=== PATIENT | male | born 1990 | race African-American/Black ===

== ENCOUNTER 2019-12-02 11:30 | Emergency (ER) | payer OTHER ==
[~2019-12-02] VITALS: Ht 180.3 cm; Wt 78.2 kg
[2019-12-02 12:58] LABS: BASO % 0.3 % (0.0-1.0); EOS % 0.8 % (0.0-3.0); HEMATOCRIT 42.5 % (42.0-52.0); HEMOGLOBIN 14.6 g/dl (13.5-17.5); LYMPH # 1.4 10^3/uL (1.5-5.0); MEAN CORPUSCULAR HGB CONC 34.4 g/dl (32.0-36.5); MEAN CORPUSCULAR VOLUME 90.2 fl (80.0-96.0); MONO # 0.3 10^3/uL (0.0-0.8); MONO % 8.4 % (0.0-5.0); NEUTROPHILS % 53.5 % (36.0-66.0); PLATELET COUNT, AUTOMATED 192 10^3/uL (150-450); RED BLOOD COUNT 4.71 10^6/uL (4.30-6.10); WHITE BLOOD COUNT 3.7 10^3/uL (4.0-10.0)
[2019-12-02] MEDS ORDERED: NAPROXEN 250 MG TAB PO ONE (13:15)
[2019-12-02] MEDS ORDERED: NAPR-837 PO (13:15)
[2019-12-02 13:40] VITALS: BP 118/68
[2019-12-02 14:04] LABS: ERYTHROCYTE SEDIMENTATION RATE 1 mm/hr (0-15)
--- NOTE | 2019-12-02 15:07 | REP ---
REASON FOR EXAM: Chest pain. COMPARISON: No priors. FINDINGS: The superior mediastinal structures are midline. The cardiac silhouette is unremarkable in size, shape, and position. The diaphragmatic surfaces of the lungs are regular, and the costophrenic angles are clear. The pulmonary jones are clear. The imaged osseous structures are intact. IMPRESSION: There is no acute cardiopulmonary disease. Electronically Signed by Oscar Marie DO 12/02/2019 04:39 P
--- NOTE | 2019-12-02 16:35 | ECGEPIP ---
[facility] - ED Test Date: 2019-12-02 Pat Name: DONNA JENNINGS Department: Room: - Gender: Male Manager Of Sustainability: CARROLL : 1990 Requested By: Yamilex Barker Order Number: [id number] Reading MD: Peng Carranza Measurements Intervals [place] Rate: 76 P: 75 TN: 161 QRS: 27 QRSD: 81 T: 44 QT: 357 QTc: 402 Interpretive Statements SINUS RHYTHM WITH SINUS ARRHYTHMIA Comparison tracing not on file Electronically Signed on 12-02-2019 16:35:36 EDT by Peng Carranza
== END 2019-12-02 13:41 | disposition home or self-care (01) ==
LOC: M ED 11:30
DX: M94.0 Chondrocostal junction syndrome [Tietze] (principal)

== ENCOUNTER 2019-12-23 16:02 | Emergency (ER) | payer OTHER ==
[~2019-12-23] VITALS: Ht 180.3 cm; Wt 77.6 kg
[~2019-12-23 16:02] MED LIST: NAPR-837 PO
[2019-12-23] MEDS ORDERED: KETOROLAC TROMETHAMINE 10 MG TAB PO ONE (16:45)
[2019-12-23 17:21] LABS: BASO % 0.3 % (0.0-1.0); EOS % 0.8 % (0.0-3.0); HEMATOCRIT 40.8 % (42.0-52.0); HEMOGLOBIN 13.9 g/dl (13.5-17.5); LYMPH # 1.3 10^3/uL (1.5-5.0); LYMPH % 37.5 % (24.0-44.0); MEAN CORPUSCULAR HEMOGLOBIN 30.5 pg (27.0-33.0); MEAN CORPUSCULAR HGB CONC 34.1 g/dl (32.0-36.5); MEAN CORPUSCULAR VOLUME 89.7 fl (80.0-96.0); MONO # 0.3 10^3/uL (0.0-0.8); MONO % 7.9 % (0.0-5.0); NEUTROPHILS # 1.9 10^3/uL (1.5-8.5); NEUTROPHILS % 53.5 % (36.0-66.0); PLATELET COUNT, AUTOMATED 189 10^3/uL (150-450); RED BLOOD COUNT 4.55 10^6/uL (4.30-6.10); WHITE BLOOD COUNT 3.6 10^3/uL (4.0-10.0)
[2019-12-23 17:31] LABS: C REACTIVE PROTEIN QUANTITATIV < 0.30 MG/DL (0.00-0.30)
[2019-12-23 17:32] LABS: MONO SCRN NEGATIVE (NEGATIVE)
[2019-12-23 18:44] VITALS: BP 130/79
[2019-12-23 20:03] LABS: ERYTHROCYTE SEDIMENTATION RATE 1 mm/hr (0-15)
== END 2019-12-23 18:45 | disposition home or self-care (01) ==
LOC: M ED 16:02
DX: R51 Headache (principal); F41.9 Anxiety disorder, unspecified; G47.00 Insomnia, unspecified

== ENCOUNTER 2020-06-25 05:53 | Emergency (ER) | payer OTHER ==
[~2020-06-25] VITALS: Ht 182.9 cm; Wt 71.8 kg
--- OUTSIDE RECORDS SUMMARY | 2020-06-25 05:58 | CCD ---
Author Author [facility] Organization [facility] Address Unknown Phone Unavailable Support Name Relationship Address Phone ASHLEY SIMS Next [place] [address] [place] [address] [phone] [facility] Next Of Kin [address] [place] [address] Unavailable TANNER SIMS Next Of [place] [address] [place] [address] [phone] Re-disclosure Warning The records that you are about to access may contain information from federally-assisted alcohol or drug abuse programs. If such information is present, then the following federally mandated warning applies: This information has been disclosed to you from records protected by federal confidentiality rules (42 CFR part 2). The federal rules prohibit you from making any further disclosure of this information unless further disclosure is expressly permitted by the written consent of the person to whom it pertains or as otherwise permitted by 42 CFR part 2. A general authorization for the release of medical or other information is NOT sufficient for this purpose. The Federal rules restrict any use of the information to criminally investigate or prosecute any alcohol or drug abuse patient.The records that you are about to access may contain highly sensitive health information, the redisclosure of which is protected by Article 27-F of the [facility] Public Health law. If you continue you may have access to information: Regarding HIV / AIDS; Provided by facilities licensed or operated by the [facility] Office of Mental Health; or Provided by the [facility] Office for People With Developmental Disabilities. If such information is present, then the following [facility] mandated warning applies: This information has been disclosed to you from confidential records which are protected by state law. State law prohibits you from making any further disclosure of this information without the specific written consent of the person to whom it pertains, or as otherwise permitted by law. Any unauthorized further disclosure in violation of state law may result in a fine or senior living sentence or both. A general authorization for the release of medical or other information is NOT sufficient authorization for further disc losure. Insurance Providers Payer name Policy type / Coverage type Policy ID Covered republican ID Covered republican's relationship to soriano Policy Soriano Plan Information [facility] ACTIVE DUTY [id number] SP [id number] [employer] [facility] REG O [id number] S [id number]
[2020-06-25 06:22] VITALS: BP 134/84
[2020-06-25 06:34] LABS: HEMATOCRIT 41.2 % (42.0-52.0); MEAN CORPUSCULAR HEMOGLOBIN 30.5 pg (27.0-33.0); MEAN CORPUSCULAR VOLUME 89.8 fl (80.0-96.0); PLATELET COUNT, AUTOMATED 199 10^3/uL (150-450); RED BLOOD COUNT 4.59 10^6/uL (4.30-6.10); WHITE BLOOD COUNT 2.7 10^3/uL (4.0-10.0)
[2020-06-25 06:59] LABS: AMPHETAMINES LEVEL URINE NEGATIVE (NEGATIVE); BARBITURATES URINE NEGATIVE (NEGATIVE); BENZODIAZEPINES URINE NEGATIVE (NEGATIVE); CANNABINOIDS URINE NEGATIVE (NEGATIVE); COCAINE METABOLITE URINE NEGATIVE (NEGATIVE); METHADONE URINE NEGATIVE (NEGATIVE); OPIATES URINE NEGATIVE (NEGATIVE); PHENCYCLIDINE URINE NEGATIVE (NEGATIVE)
--- OUTSIDE RECORDS SUMMARY | 2020-06-25 07:09 | CCD ---
Demographics Address [address] [place] [address] Preferred Language Azerbaijani Marital Status Judaism Affiliation Shinto Race Black or Ethnic Group Not or Author Author [facility] Address Unknown Phone Unavailable Support Name Relationship Address Phone ASHLEY SIMS Next Of Kin [address] [place] [address] [phone] [facility] Next Of Kin [address] [place] [address] Unavailable TANNER SIMS Next Of Kin [address] [place] [address] [phone] Re-disclosure Warning The records that you are [...] is protected by Article 27-F of the [facility] Public Health law. If you continue you may have access to information: Regarding HIV / AIDS; Provided by facilities licensed or operated by the [facility] Office of Mental Health; or Provided by the [facility] Office for People With Developmental Disabilities. If such information is present, then the following [facility] mandated warning applies: This information has [...] law may result in a fine or half-way sentence or both. A general authorization for the release of medical or other information is NOT sufficient authorization for further disc losure. Insurance Providers Payer name Policy type / Coverage type Policy ID Covered green party ID Covered green party's relationship to soriano Policy Soriano Plan Information [facility] ACTIVE DUTY [id number] SP [id number] [facility] REG O [id number] S [id number]
[2020-06-25 07:11] LABS: ACETAMINOPHEN LEVEL < 2.0 UG/ML (10.0-30.0); ALT/SGPT 52 U/L (12-78); BILIRUBIN,DIRECT 0.3 MG/DL (0.0-0.2); BLOOD UREA NITROGEN 8 MG/DL (7-18); CALCIUM LEVEL 8.8 MG/DL (8.5-10.1); CARBON DIOXIDE LEVEL 31 MEQ/L (21-32); CHLORIDE LEVEL 106 MEQ/L (98-107); CREATININE FOR GFR 1.04 MG/DL (0.70-1.30); ETHYL ALCOHOL (ETHANOL) < 0.003 % (0.000-0.010); GLOMERULAR FILTRATION RATE > 60.0 (>60); GLUCOSE, FASTING 102 MG/DL (70-100); POTASSIUM SERUM 3.4 MEQ/L (3.5-5.1); SALICYLATE LEVEL < 1.7 MG/DL (5.0-30.0); SODIUM LEVEL 140 MEQ/L (136-145); TOTAL PROTEIN 7.2 GM/DL (6.4-8.2)
== END 2020-06-25 10:16 | disposition home or self-care (01) ==
LOC: M ED 05:53
DX: F43.0 Acute stress reaction (principal)
CPT/HCPCS: 36415; 80048; 80076; 80307; 84443; 85027; 99284; G0480

== ENCOUNTER 2020-09-11 13:51 | Emergency (ER) | payer OTHER ==
[~2020-09-11] VITALS: Ht 182.9 cm; Wt 78.1 kg
[2020-09-11 13:51] VITALS: BP 134/79
[2020-09-11 16:59] LABS: CHLAMYDIA DNA AMPLIFICATION NEGATIVE (NEGATIVE); GC DNA AMPLIFICATION NEGATIVE (NEGATIVE)
[2020-09-11 17:11] LABS: HIV 1&2 SCREEN CENTAUR NEGATIVE (NEGATIVE)
[2020-09-11] MEDS ORDERED: COLA100C5 PO (17:18)
== END 2020-09-11 17:54 | disposition home or self-care (01) ==
LOC: M ED 13:51
DX: Z20.2 Contact with and (suspected) exposure to infections with a predominantly sexual mode of transmission (principal); K64.9 Unspecified hemorrhoids

== ENCOUNTER 2020-12-04 17:33 | Emergency (ER) | payer OTHER ==
[~2020-12-04] VITALS: Ht 182.9 cm; Wt 79.6 kg
[2020-12-04 17:33] VITALS: BP 140/83
[~2020-12-04 17:33] MED LIST changes: +COLA100C5 PO
[2020-12-04] MEDS ORDERED: diphenhydrAMINE 50MG/ML VIAL (J1200) IV STA (19:02)
[2020-12-04] MEDS ORDERED: NS 1,000 ML IV ONE (19:05)
[2020-12-04] MEDS ORDERED: METOCLOPRAMIDE INJ 10MG/2ML VIAL (J2765 PER 1) IV ONE (19:05)
[2020-12-04] MEDS ORDERED: KETOROLAC 30 MG/ML 1ML VIAL IV ONE (19:05)
[2020-12-04 19:25] LABS: BASO % 0.5 % (0.0-1.0); EOS % 0.7 % (0.0-3.0); HEMATOCRIT 44.7 % (42.0-52.0); HEMOGLOBIN 15.2 g/dl (13.5-17.5); LYMPH # 1.6 10^3/uL (1.5-5.0); LYMPH % 36.6 % (24.0-44.0); MEAN CORPUSCULAR HEMOGLOBIN 30.8 pg (27.0-33.0); MEAN CORPUSCULAR VOLUME 90.7 fl (80.0-96.0); MONO # 0.3 10^3/uL (0.0-0.8); MONO % 7.2 % (2.0-8.0); NEUTROPHILS # 2.4 10^3/uL (1.5-8.5); NEUTROPHILS % 54.8 % (36.0-66.0); PLATELET COUNT, AUTOMATED 216 10^3/uL (150-450); RED BLOOD COUNT 4.93 10^6/uL (4.30-6.10); WHITE BLOOD COUNT 4.3 10^3/uL (4.0-10.0)
--- NOTE | 2020-12-04 19:57 | REPVR ---
PROCEDURE INFORMATION: Exam: CT Head Without Contrast Exam date and time: 12/04/2020 7:09 PM Age: 30 years old Clinical indication: Pain; Dizziness; Headache; Additional info: Severe DILLON, dizziness TECHNIQUE: Imaging protocol: Computed tomography of the head without contrast. Radiation optimization: All CT scans at this facility use at least one of these dose optimization techniques: automated exposure control; mA and/or kV adjustment per patient size (includes targeted exams where dose is matched to clinical indication); or iterative reconstruction. COMPARISON: No relevant prior studies available. FINDINGS: Brain: Normal. No hemorrhage. Unremarkable white matter. No mass effect. Cerebral ventricles: No ventriculomegaly. Paranasal sinuses: Visualized sinuses are unremarkable. No fluid levels. Mastoid air cells: Visualized mastoid air cells are well aerated. Bones/joints: Unremarkable. No acute fracture. Soft tissues: Unremarkable. IMPRESSION: No acute intracranial abnormality. Electronically signed by: Keshav Rodriguez On 12/04/2020 19:56:55 PM
[2020-12-04] MEDS ORDERED: dexameTHASONE 20MG/5ML VIAL (J1100 PER 1MG) IV ONE (21:00)
== END 2020-12-04 22:18 | disposition home or self-care (01) ==
LOC: M ED 17:33
DX: R51.9 Headache, unspecified (principal)
CPT/HCPCS: 70450; 80047; 85025; 96361; 96374; 96375; 99283; J1100; J1200; J1885; J2765

== ENCOUNTER 2021-03-27 02:20 | Emergency (ER) | payer OTHER ==
[~2021-03-27] VITALS: Ht 182.9 cm; Wt 82.4 kg
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
--- OUTSIDE RECORDS SUMMARY | 2021-03-27 02:29 | CCD | Continuity of Care Document ---
Author Author Bo BROWNE M.D. Organization Unknown Address [address] [place] [id number] Phone [phone] Care Team Providers Care Architectural Administrative Assistant Name Role Phone Misbah Martinez M.D. AUTM [phone] Problems Active Problems Provider Date Migraine Mike Browne M.D. Onset: 02/16/2021 Social History Type Date Description Comments Sex Unknown Allergies, Adverse Reactions, Alerts Active Allergies Criticality Reaction | Severity Comments Date G6PD Deficiency Unable to assess criticality 02/16/2021 Medications Active Medications SIG Qnty Indications Ordering Provide r Date Amitriptyline HCL 50mg Tablets Take one tablet at bedtime, 30tabs Mike Browne M.D. 021 Prednisone 20mg Tablets Take 60mg x2days, then 40mg x2 day, then 20mg x2days, then 10mg x2days. then stop. 21tabs Mike Browne M.D. 02/16/2021 Topiramate 50mg Tablets 1/2 tab by mouth once a day Unknown Immunizations Description No Information Available Vital Signs Date Vital Result Comment 02/16/2021 9:54am Respiratory Rate 12 /min Height 72 inches 6'0" Weight 176.00 lb BMI (Body Mass Index) 23.9 kg/m2 [place] Body Weight 178 lb Results Description No Information Available Procedures Date Code Description Status 02/16/2021 65918 Office Consultation Level 4 Comp leted Medical Devices Description No Information Available Encounters Type Date Location Provider Dx Diagnosis Office Visit 02/16/2021 9:30a Main office - [place] Mike de los santos M.D. G43.719 Chronic migraine w/o aura, intractable, w/o stat migr Assessments Date Code Description Provider 02/16/2021 G43.719 Chronic migraine wit hout aura, intractable, without status migrainosus Mike Browne M.D. Plan of Treatment Future Appointment(s):* 05/28/2021 11:45 am - Mike Browne M.D. at Main office - [place] Functional Status Description No Information Available Mental Status Description No Information Available Referrals Refer to Dr Reason for Referral Status Appt Date Mike Browne M.D. Created [address] [place] [address] [phone]
[2021-03-27] MEDS ORDERED: D3 +TAB PO (02:41)
[2021-03-27] MEDS ORDERED: BISO5TAB14 PO (02:41)
[2021-03-27] MEDS ORDERED: AMIT50TA PO (02:41)
[2021-03-27] MEDS ORDERED: ZOFR4TAB16 PO (02:41)
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
--- NOTE | 2021-03-27 08:11 | ECGEPIP ---
[facility] - ED Test Date: 2021-03-27 Pat Name: DONNA JENNINGS Department: Room: - Gender: Male Catering Attendant: VINICIO : 1990 Requested By: ALLIE Snell Order Number: [id number] Reading MD: Alan Queen Measurements Intervals [place] Rate: 79 P: 74 IN: 170 QRS: 5 QRSD: 76 T: 23 QT: 334 QTc: 382 Interpretive Statements Normal sinus rhythm POOR R WAVE PROGRESSION SIMILAR TO 12/02/19 Electronically Signed on 03-27-2021 8:11:18 EDT by Alan Queen
--- NOTE | 2021-03-27 10:29 | REP ---
INDICATION: dizzy/back pain COMPARISON: 12/02/2019 TECHNIQUE: PA and lateral. FINDINGS: The mediastinum and cardiac silhouette are normal. The lung jones are clear and without acute consolidation, effusion, or pneumothorax. The skeletal structures are intact and normal. IMPRESSION: No acute cardiopulmonary process. <Electronically signed by Efrain Joe > 03/27/21 [id number]
[2021-03-27 10:50] LABS: BASO % 0.2 % (0.0-1.0); EOS % 0.2 % (0.0-3.0); HEMOGLOBIN 14.7 g/dl (13.5-17.5); LYMPH # 0.8 10^3/uL (1.5-5.0); MEAN CORPUSCULAR HEMOGLOBIN 30.6 pg (27.0-33.0); MEAN CORPUSCULAR HGB CONC 34.2 g/dl (32.0-36.5); MEAN CORPUSCULAR VOLUME 89.4 fl (80.0-96.0); MONO # 0.3 10^3/uL (0.0-0.8); MONO % 8.2 % (2.0-8.0); NEUTROPHILS % 73.2 % (36.0-66.0); PLATELET COUNT, AUTOMATED 158 10^3/uL (150-450); RED BLOOD COUNT 4.81 10^6/uL (4.30-6.10); WHITE BLOOD COUNT 4.2 10^3/uL (4.0-10.0)
[2021-03-27] MEDS ORDERED: METOCLOPRAMIDE INJ 10MG/2ML VIAL (J2765 PER 1) IV ONE (11:15)
[2021-03-27] MEDS ORDERED: NS 1,000 ML IV ONE (11:15)
[2021-03-27] MEDS ORDERED: ACETAMINOPHEN 500 MG TAB PO ONE (11:15)
[2021-03-27] MEDS ORDERED: diphenhydrAMINE 50MG/ML VIAL (J1200) IV ONE (11:15)
[2021-03-27] MEDS ORDERED: KETOROLAC 30 MG/ML 1ML VIAL IV ONE (11:15)
[2021-03-27 11:34] LABS: BLOOD UREA NITROGEN 10 MG/DL (7-18); CALCIUM LEVEL 8.6 MG/DL (8.5-10.1); CARBON DIOXIDE LEVEL 28 MEQ/L (21-32); CHLORIDE LEVEL 107 MEQ/L (98-107); GLOMERULAR FILTRATION RATE > 60.0 (>60); GLUCOSE, FASTING 96 MG/DL (70-100); SODIUM LEVEL 139 MEQ/L (136-145); THYROID STIMULATING HORMONE 0.463 uIU/ML (0.358-3.740)
[2021-03-27] MEDS ORDERED: KETO10TAB PO (14:12)
[2021-03-27 14:21] VITALS: BP 116/67
== END 2021-03-27 14:32 | disposition home or self-care (01) ==
LOC: M ED 02:20
DX: G43.909 Migraine, unspecified, not intractable, without status migrainosus (principal); I10 Essential (primary) hypertension; Z79.899 Other long term (current) drug therapy
CPT/HCPCS: 36415; 71046; 80048; 84443; 85025; 93005; 96361; 96374; 96375; 99284; J1200; J1885; J2765

== ENCOUNTER → 2021-11-02 | Outpatient (REF) ==
[~2021-11-02] MED LIST changes: +AMIT50TA PO; +BISO5TAB14 PO; +D3 +TAB PO; +KETO10TAB PO; +ZOFR4TAB16 PO
== END ==
LOC: M PLALAB 11:58
PROVIDERS: ATTEND Internal Medicine
DX: R06.02 Shortness of breath (principal)